=== PATIENT | male | born 1930 | race Caucasian/White ===

== ENCOUNTER 2020-06-20 17:29 | Emergency (ER) | payer OTHER ==
[2020-06-20 18:58] LABS: HEMOGLOBIN 11.3 gm/dl (14.0-17.5); RED BLOOD COUNT 3.46 M/UL (4.20-5.50); WHITE BLOOD COUNT 7.1 K/UL (4.5-11.0)
== END 2020-06-20 21:42 | disposition home or self-care (01) ==
LOC: ER1 17:29
PROVIDERS: Preventive Medicine Occupational Medicine
DX: R07.89 Other chest pain (principal); I10 Essential (primary) hypertension; I25.10 Atherosclerotic heart disease of native coronary artery without angina pectoris; Z20.822 Contact with and (suspected) exposure to COVID-19
CPT/HCPCS: 0240U; 36600; 71045; 80053; 81001; 82550; 82553; 82803; 83690; 83874; 83880; 84484; 85025; 85652; 86140; 87086; 93005; 99285; J7030